=== PATIENT | male | born 1995 | race African-American/Black ===

== ENCOUNTER 2023-12-29 18:09 | Emergency (ER) | payer OTHER, SELFPAY ==
--- NOTE | 2023-12-29 18:12 | ED.ALLEREA ---
HPI - Allergic Reaction General Chief complaint: Allergic Reaction Stated complaint: Allergic reaction Time Seen by Provider: 12/29/23 18:25 Source: patient, RN notes reviewed and old records reviewed Mode of arrival: ambulatory History of Present Illness ED Provider: Lizzette Canales PA-C HPI narrative: 18-year-old male with no significant past medical history presenting to the ED c/o diffuse body pruritus with suspected allergic reaction s/p eating noodles he believes had nuts or peanut oil in them. patient with known allergy to nuts. NOT anaphylaxis. Denies SOB, throat closing sensation, CP/SOB, rash Related Data Previous Rx's ?Medication ?Instructions ?Recorded cetirizine 10 mg capsule (Zyrtec) 10 mg PO DAILY #10 caps 12/29/23 diphenhydramine HCl 25 mg capsule 25 mg PO TID PRN allergic reaction 12/29/23 (Benadryl) #14 caps Allergies Allergy/AdvReac Type Severity Reaction Status Date / Time almond Allergy Itching Verified 12/29/23 18:16 cashew nut Allergy Itching Verified 12/29/23 18:16 Review of Systems Review of Systems: Yes all other systems are reviewed and are negative Constitutional: Constitutional: Reports as per [facility] Past Medical History Attestation statement: The following information was validated with the patient. Source: old records reviewed Social History Social History Advance Directives: No Advance Directives Information Provided: No Do you have a plan to hurt others: No Plan Physical Exam ED Vital Signs: Vital Signs - 24 hr 12/29/23 18:13 12/29/23 20:07 Temperature 98.5 F 98.5 F Pulse Rate 77 77 Respiratory Rate 20 20 Blood Pressure 117/62 117/62 Pulse Oximetry 97 97 Oxygen Delivery Method Room Air Room Air BMI result Body Mass Index 20.5 Const General: cooperative, healthy appearing and no acute distress Orientation/consciousness: patient oriented x3 Limitations: no limitations HENMT Head: Yes normal to inspection and Yes atraumatic Ears: hearing grossly normal bilaterally General nose exam: Normal external nose present Face and sinus: Yes normal facial exam Mouth: no drooling Throat: Yes posterior oropharynx normal, Yes uvula midline, No peritonsillar mass, No uvula laterally displaced and No uvular edema Eyes General: appearance normal, both eyes and all related structures EOM: EOMs intact bilaterally Neck Neck: Yes normal visual inspection and Yes no meningeal signs Resp Effort & Inspection: normal respiratory effort, no respiratory distress and no stridor Auscultation: clear to auscultation bilaterally, no crackles and no wheezes Cardio Rate: regular rate Heart sounds: S1 normal heart sound present and S2 normal heart sound present Skin Rashes: no rashes Wounds: no wounds Neuro General: patient oriented x3, tone normal and no meningeal signs Cranial nerves: Yes CN's II-XII intact bilaterally Gait exam (Neuro): Normal gait present Extrem General: Yes normal to inspection Course Course Course Narrative: 1956--on re-evaluation patient reports symptomatic improvement. Denies SOB, throat closing sensation. No appreciable rash. Uvula midline. No wheezing or stridor. Results discussed with patient including worrisome signs and symptoms and strict return precautions, and when to return to the emergency department. They verbalized understanding and feel safe for discharge at this time. Medications Administered Discontinued Medications Generic Name Dose Route Start Last Admin Trade Name Juanq PRN Reason Stop Dose Admin Diphenhydramine HCl 50 mg 12/29/23 18:16 12/29/23 18:40 Diphenhydramine Hcl 50 Mg/Ml Vial IVPUSH 12/29/23 18:17 50 mg ONCE ONE Administration Famotidine 20 mg 12/29/23 18:16 12/29/23 18:43 Famotidine/Pf 20 Mg/2 Ml Vial IVPUSH 12/29/23 18:17 20 mg ONCE ONE Administration Methylprednisolone Sodium Succinate 60 mg 12/29/23 18:16 12/29/23 18:35 Methylprednisolone Sod Succ 125 Mg/2 Ml Vial IVPUSH 12/29/23 18:17 60 mg ONCE ONE Administration Medical Decision Making Medical Decision Making MDM Narrative: 18-year-old male with no significant past medical history presenting to the ED c/o diffuse body pruritus with suspected allergic reaction s/p eating noodles he believes had nuts or peanut oil in them. On exam vital signs stable, NAD, nontoxic appearing, speaking in complete sentences, no drooling, no respiratory distress. Uvula midline, no stridor. Lungs CTA. Concern for allergic reaction. No evidence of anaphylaxis. Plan: IV Benadryl, Solu-Medrol, Pepcid, re-evaluate Please refer to course for remaining clinical decision making, interpretation of labs/imaging results, and discussions with consultants and/or family members. Differential Diagnosis Differential Diagnoses: The differential diagnosis associated with the presentation includes As above External Record Review External record reviewed: Inpatient record, Office record, Outpatient record, Prior outpatient labs, Prior outpatient radiology, Primary care record and Outside ED record Tests considered The following testing was considered but not selected: As above Discharge Plan Discharge Clinical Impression: Allergic reaction Patient Disposition: Home, Self-Care Instructions: General Allergic Reaction (ED) Additional Instructions: Please carry Benadryl you at all times Take Benadryl as needed for allergic reaction symptoms This will make you drowsy Zyrtec will not make you drowsy, take in the morning If you develop any rash, persistent or worsening hives, throat closing sensation, shortness of breath return to the ED Prescriptions: New diphenhydramine HCl [Benadryl] 25 mg capsule 25 mg PO TID PRN (Reason: allergic reaction) Qty: 14 0RF Zyrtec 10 mg capsule 10 mg PO DAILY Qty: 10 0RF Referrals: [facility] [Outside] [facility] [Outside] Physician,Unknown J [Primary Care Provider] - Stand Alone Forms: Work/School Release Interventions: ED Discharge Assessment Last Done: 12/29/23 20:07 Discharge Date/Time: 12/29/23 20:07 Print Language: Vietnamese
[2023-12-29 18:13] VITALS: BP 117/62; PULSE 77; RESP 20; TEMP 36.9; O2SAT 97; BMI 20.5
[2023-12-29] MEDS: methylPREDNISolone Sod Succ 125 MG/2 ML VIAL 60 MG IVPUSH (18:35)
[2023-12-29] MEDS: diphenhydrAMINE HCL 50 MG/ML VIAL IVPUSH (18:40)
[2023-12-29] MEDS: Famotidine/PF 20 MG/2 ML VIAL IVPUSH (18:43)
[2023-12-29 20:07] VITALS: BP 117/62; PULSE 77; RESP 20; TEMP 36.9; O2SAT 97
== END 2023-12-29 20:07 | disposition home or self-care (01) ==
PROVIDERS: Emergency Provider Internal Medicine
DX: L29.9 Pruritus, unspecified (principal); T78.40XA Allergy, unspecified, initial encounter; X58.XXXA Exposure to other specified factors, initial encounter
CPT/HCPCS: 96374; 96375; 99283; 99284; J1200; J2919